=== PATIENT | male | born 1965 | race Caucasian/White ===

== ENCOUNTER → 2017-05-24 | Outpatient (CLI) | payer MEDICAID, SELFPAY | PROVIDERS: Visit Provider Anesthesiology | DX: M54.2 Cervicalgia (principal); M54.5 Low back pain ==

== ENCOUNTER → 2017-06-12 13:51 | Outpatient (CLI) | payer MEDICAID, SELFPAY ==
--- NOTE | 2017-06-12 13:59 | MR_ITS ---
MR lumbar spine wo con, MR 3-d myelogram/MRCP HISTORY: Low back pain worse on the right with bilateral leg numbness ITS.REASON: NECK AND BACK PAIN ORDERING PHYSICIAN: Trace Moscoso MD PATIENT AGE: 52 years COMPARISON: None TECHNIQUE: Standard multiplanar multiecho sequences are performed without contrast. 3-D MIP and myelographic images are also rendered and reviewed FINDINGS: The spinal cord ends at the T12 level. T11-T12, T12-L1, L1-L2, and L2-L3 have an unremarkable appearance. L3-L4: Mild bulging disc with mild facet ligamentum flavum hypertrophy with mild bilateral foraminal narrowing. L4-5: Bulging disc with facet and ligamentum flavum hypertrophy with moderate to severe bilateral foraminal narrowing. L5-S1: Grade 1 spondylolytic spondylolisthesis with pseudocyst disc bulge. There is prominent hypertrophic changes at the facets and pars defect with moderate to severe bilateral foraminal narrowing. No disc herniation or canal stenosis. IMPRESSION: 1. Lumbar spondylosis with degenerative disc disease, bulging disc, and facet and ligamentum arthropathy with bilateral foraminal narrowing most severe at L4-L5. 2. Grade 1 spondylolytic spondylolisthesis L5-S1 with pseudo disc bulge. There is prominent hypertrophic changes at the facets and pars defect with moderate to severe bilateral foraminal narrowing 3. No disc herniation, canal stenosis, or acute fracture
--- NOTE | 2017-06-12 13:59 | MR_ITS ---
MR cervical spine wo con HISTORY: Neck pain with bilateral arm numbness ORDERING PHYSICIAN: Trace Moscoso MD PATIENT AGE: 52 years COMPARISON: None TECHNIQUE: Standard multiplanar multiecho sequences are performed without contrast. 3-D MIP and myelographic images are also rendered and reviewed FINDINGS: The craniocervical junction has an unremarkable appearance. There is normal alignment. The disc spaces are well-preserved. No disc herniation or canal stenosis. No significant foraminal narrowing. Unremarkable appearance of the cervical cord IMPRESSION: Negative MRI of the cervical spine
== END ==
PROVIDERS: Family Provider Internal Medicine Adolescent Medicine; PCP Internal Medicine Adolescent Medicine; Visit Provider Anesthesiology
DX: M54.2 Cervicalgia (principal); M54.5 Low back pain
CPT/HCPCS: 72141; 72148; 76376

== ENCOUNTER → 2017-06-18 10:17 | Outpatient (POV) | payer MEDICAID, SELFPAY ==
--- NOTE | 2017-06-18 11:12 | HMH.PAINSOAP ---
[facility] Pain Management SOAP Note Subjective:: This patient is a 52-year-old white male who we have been seeing for low back pain. We did get a new MRI which shows facet hypertrophy at L4-L5 and L5-S1 with lumbar spondylosis. There is no herniated disc. There is no neuroforaminal narrowing. He has a previous history of cocaine abuse, marijuana abuse and long history of oral narcotic abuse. We will not prescribe him any oral narcotics. He was denied on intrathecal therapy. He has a negative cervical spine MRI. Upon entering the room I did offer the patient facet joint injections of L4-5 and L5-S1 and the patient was very argumentative and said that he has had injections before. Patient is very hostile and kept asking how long it would be before he had the injections and what we will do afterwards. I offered him a plan of facet joint injections followed by rhizotomy and the patient was very resistant and hostile about the procedures. There is nothing more that I can offer this patient. Based on his attitude we will discharge him from the clinic as there is nothing further that I can offer him. He was asking about laser spine surgery I have told him that he can miner pick his MRI disc and contact laser spine surgery on his own. Objective:: Alert and oriented ?3 in no acute distress. Patient has an antalgic gait. Motor strength of the left upper and lower extremities is 5/5. Assessment:: Degenerative disc disease of the lumbar spine with lumbar spondylosis. Patient does have neck pain with cervical radiculopathy symptoms with a normal cervical MRI. Plan:: I offered him a plan of facet joint injections followed by rhizotomy and the patient was very resistant and hostile about the procedures. There is nothing more that I can offer this patient. Based on his attitude we will discharge him from the clinic as there is nothing further that I can offer him. He was asking about laser spine surgery I have told him that he can miner pick his MRI disc and contact laser spine surgery on his own.
--- NOTE | 2017-06-18 11:15 | P.CONS_ITS ---
[facility] Pain Management SOAP Note Subjective:: This patient is a 52-year-old white male who we have been seeing for low back pain. We did get a new MRI which shows facet hypertrophy at L4-L5 and L5-S1 with lumbar spondylosis. There is no herniated disc. There is no neuroforaminal narrowing. He has a previous history of cocaine abuse, marijuana abuse and long history of oral narcotic abuse. We will not prescribe him any oral narcotics. He was denied on intrathecal therapy. He has a negative cervical spine MRI. Upon entering the room I did offer the patient facet joint injections of L4-5 and L5-S1 and the patient was very argumentative and said that he has had injections before. Patient is very hostile and kept asking how long it would be before he had the injections and what we will do afterwards. I offered him a plan of facet joint injections followed by rhizotomy and the patient was very resistant and hostile about the procedures. There is nothing more that I can offer this patient. Based on his attitude we will discharge him from the clinic as there is nothing further that I can offer him. He was asking about laser spine surgery I have told him that he can pick up man his MRI disc and contact laser spine surgery on his own. Objective:: Alert and oriented ?3 in no acute distress. Patient has an antalgic gait. Motor strength of the left upper and lower extremities is 5/5. Assessment:: Degenerative disc disease of the lumbar spine with lumbar spondylosis. Patient does have neck pain with cervical radiculopathy symptoms with a normal cervical MRI. Plan:: I offered him a plan of facet joint injections followed by rhizotomy and the patient was very resistant and hostile about the procedures. There is nothing more that I can offer this patient. Based on his attitude we will discharge him from the clinic as there is nothing further that I can offer him. He was asking about laser spine surgery I have told him that he can pick up man his MRI disc and contact laser spine surgery on his own.
[2017-06-18 11:52] VITALS: BP 115/71; PULSE 89; RESP 20; BMI 26.4
== END ==
PROVIDERS: Family Provider Internal Medicine Adolescent Medicine; PCP Internal Medicine Adolescent Medicine; Visit Provider Anesthesiology
DX: M51.16 Intervertebral disc disorders with radiculopathy, lumbar region (principal); M47.9 Spondylosis, unspecified
CPT/HCPCS: 99212

== ENCOUNTER → 2020-05-03 12:07 | Outpatient (CLI) | payer OTHER, SELFPAY ==
[2020-05-03 15:50] LABS: Coronavirus 19 IgG Antibody Negative (Negative); Coronavirus 19 IgM Antibody Negative (Negative)
== END ==
PROVIDERS: Visit Provider Surgery
DX: Z01.818 Encounter for other preprocedural examination (principal); Z03.818 Encounter for observation for suspected exposure to other biological agents ruled out; Z12.11 Encounter for screening for malignant neoplasm of colon
CPT/HCPCS: 36415; 86328

== ENCOUNTER 2020-05-04 06:55 | Day surgery (SDC) | payer OTHER, SELFPAY ==
[2020-04-30 13:40] VITALS: BMI 23.7
[2020-05-04 07:02] VITALS: BP 175/82; PULSE 63; RESP 18; TEMP 36.4; O2SAT 97
--- NOTE | 2020-05-04 07:15 | HMH.ANESCL ---
[facility] Anesthesia Checklist - Patient Identification Patient Identification: Arm Band, Verbal (Name & ) - Structural Data Admitted From: Home Planned Operative Procedure/s: colon Consent for Planned Operative Procedure(s) Verified: Yes Verified Documents: History and Physical - NPO Status Verified Time NPO: 00:00 - Additional verifications Patient : No Anesthesia Reactions: No Hx Blood Transfusions: No Blood Transfusion Reaction: No Cephalosporin Allergy: No Previous Colonoscopy: No - Cardiovascular Assessment Heart Sounds: S1 & S2 Pulse Strength: Baseline Pulse Rhythm: Regular Peripheral Edema: No - Airway Assessment C-Spine Mobility Assessed: Yes TMJ Mobility Assessed: Yes Dentition: Poor Dentition - Neurological Assessment Level of Consciousness: Awake, Alert, Appropriate Hx Seizures: No Numbness or tingling in extremities: No - Anesthesia Plan Anesthesia Risk discussed: Yes Anesthesia Plan: Verified ASA Class: III Anesthesia Type: MAC [facility] History I have reviewed the patient's past medical history: Yes Medical History: Reports:: MRSA (R FOOT), Seizures (over a year for last seizure) Denies:: Cancer, Diabetes Mellitus Type 1, Diabetes Mellitus Type 2, Internal Pacemaker *Have you ever received a pneumonia vaccine?: No *Have you received a flu vaccine this season?: No Anesthesia experience/problems:: none Other Surgeries: Yes: Other. No: Pacemaker Amputation: No Fractures: No - *Social History Last grade of school completed: 7th or 8th Smoking Status: Current every day smoker Tobacco Type: cigarettes # Packs/Day (cigarettes): 1 Alcohol Intake: never Substance Use Type: marijuana, painkillers *Occupational Status:: disabled *Travel in the last 8 weeks: None Family Hx:: Other
[2020-05-04 07:26] VITALS: O2SAT 99
--- NOTE | 2020-05-04 07:55 | HMH.SCOPE ---
- Procedure: Date: 05/04/20 Patient Date of :: 1965 Procedure Performed:: Total colonoscopy to terminal ileum with polypectomy by biopsy Indications:: 54-year-old male referred by Luiz Kenny for initial screening colonoscopy Performing Provider:: Michael Ralph MD Referring Provider:: Luiz Kenny Sedation:: MAC sedation Procedure:: Patient was taken to endoscopy procedure room. He was positioned in a lateral decubitus position. Adequate intravenous sedation was achieved with anesthesia titration of propofol. Digital examination was performed which revealed diminished sphincter tone. Variable stiffness Olympus colonoscope was inserted via the anus and advanced to cecum. Colonic preparation was good although there was some particulate vegetable matter within the colon. Irrigation and suctioning was performed. Colonoscope was advanced into the terminal ileum which appeared grossly normal. Immediately in the terminal ileum at the ileocecal valve there was a polypoid appearing lesion. This was biopsied and in a piecemeal fashion using cold biopsy forceps. Colonoscope was withdrawn through the colon with careful surveillance. In the sigmoid colon there is a very tiny diminutive subtle polyp removed with cold biopsy forceps. Within the rectum there were several hyperplastic appearing polyps, there was one that was more prominent in the distal rectum which was removed with cold biopsy forceps. This was removed with retroflexion. Colonoscope was withdrawn. Findings:: Prominent nodule at the ileocecal valve, likely benign biopsied in a piecemeal fashion Very tiny subtle diminutive sigmoid polyp removed with cold biopsy forceps Distal rectal polyp, likely hyperplastic, removed with cold biopsy forceps Recommendations:: Pending the pathology likely repeat colonoscopy 5 years. However, if the lesion within the ileocecal valve is adenomatous, which is unlikely, would likely perform early repeat colonoscopy. Complications:: None immediately apparent Estimated blood obtained (mL): 3
[2020-05-04 07:56] VITALS: BP 94/60; PULSE 74; RESP 16; TEMP 36.3; O2SAT 97
[2020-05-04 08:07] VITALS: BP 139/84; PULSE 82; RESP 18; O2SAT 95
[2020-05-04 08:17] VITALS: BP 141/80; PULSE 66; RESP 18; O2SAT 96
[2020-05-04 08:27] VITALS: BP 132/96; PULSE 98; RESP 18; O2SAT 97
== END 2020-05-04 08:27 | disposition home or self-care (01) ==
LOC: OUTP 06:56
PROVIDERS: PCP Internal Medicine Adolescent Medicine; Visit Provider Surgery
PROC: 0DJD8ZZ Inspection of Lower Intestinal Tract, Via Natural or Artificial Opening Endoscopic (ICD-10-PCS; CPT 45380; principal; 2020-05-04 07:30)
DX: Z12.11 Encounter for screening for malignant neoplasm of colon (principal); K63.5 Polyp of colon; K63.9 Disease of intestine, unspecified; K62.1 Rectal polyp; Z86.14 Personal history of Methicillin resistant Staphylococcus aureus infection; Z87.898 Personal history of other specified conditions; Z72.0 Tobacco use; F12.90 Cannabis use, unspecified, uncomplicated; F11.90 Opioid use, unspecified, uncomplicated; Z88.6 Allergy status to analgesic agent
CPT/HCPCS: 45380

== ENCOUNTER → 2023-04-24 08:23 | Outpatient (CLI) | payer OTHER, SELFPAY ==
[2023-04-24 18:48] LABS: Basophils # 0.1 K/mm3 (0-0.2); Basophils % 0.9 % (0.1-2.0); Eosinophils # 0.1 K/mm3 (0.0-0.4); Eosinophils % 1.1 % (0.1-12.0); Hematocrit 47.6 % (42.0-52.0); Hemoglobin 16.3 g/dL (14.1-18.0); Lymphocytes # 1.2 K/mm3 (0.7-4.5); Lymphocytes % 12.2 % (10-50); Mean Corpuscular HGB Conc 34.2 g/dL (31.8-35.4); Mean Corpuscular Hemoglobin 28.9 pg (27.0-31.2); Mean Corpuscular Volume 84.4 fl (80-94); Mean Platelet Volume 8.9 fl (7.4-10.4); Monocytes # 0.8 K/mm3 (0.1-1.0); Monocytes % 7.9 % (1.7-9.3); Neutrophils # 7.6 K/mm3 (1.8-7.8); Neutrophils % 77.9 % (37.0-80.0); Platelet Count 561 K/mm3 (142-424); Red Blood Count 5.65 M/mm3 (4.60-6.20); Red Cell Distribution Width 14.2 % (11.5-17.5); White Blood Count 9.7 K/mm3 (4.8-10.8)
[2023-04-24 19:03] LABS: Alanine Aminotransferase 52 U/L (12-78); Albumin Level 4.4 g/dl (3.5-5.0); Albumin/Globulin Ratio 1.4 (1.1-1.8); Alkaline Phosphatase 106 U/L (38-126); Anion Gap 17.5 mEq/L (5-15); Aspartate Amino Transferase 52 U/L (17-59); Bilirubin,Total 0.8 mg/dl (0.2-1.3); Blood Urea Nitrogen 10 mg/dl (9-20); Calcium 9.2 mg/dl (8.4-10.2); Carbon Dioxide 23 mmol/L (22.0-30.0); Chloride 103 mmol/L (98-107); Chol/HDL Ratio 4.6 (1-3.5); Cholesterol 190 mg/dl (140-200); Estimated Glomerular Filt Rate 99 ml/min (>60); GFR (African American) 120 ML/MIN (>60); Globulin 3.1 g/dL (1.3-3.2); Glucose 102 mg/dl (74-100); HDL Cholesterol 41 mg/dl (40-60); Potassium 4.5 mmoL/L (3.5-5.1); Sodium 139 mmol/L (136-145); Total Protein,Serum 7.5 g/dl (6.3-8.2); Triglycerides 124 mg/dl (30-150); VLDL Cholesterol 25 mg/dL (0-40)
[2023-04-24 19:14] LABS: Direct LDL Cholesterol 119.01 mg/dL (100-129)
[2023-04-24 19:35] LABS: Prostate Specific Ag Screen 0.5 ng/ml (0.0-4.0); Thyroid Stimulating Hormone 0.59 uIU/mL (0.465-4.68)
[2023-04-24 21:06] LABS: 25-OH Vitamin D, Total 16.6 ng/mL (30-100)
[2023-04-26 14:11] LABS: HBsAg Screen Negative (Negative); HCV Ab Non Reactive (Non Reactive); HIV Screen 4th Generation wRfx Non Reactive (Non Reactive); Hep A Ab, IGM Positive (Negative); Hep B Core Ab, IgM Negative (Negative)
== END ==
PROVIDERS: PCP Internal Medicine; Visit Provider Internal Medicine
DX: R53.83 Other fatigue (principal); E55.9 Vitamin D deficiency, unspecified; Z68.23 Body mass index [BMI] 23.0-23.9, adult
CPT/HCPCS: 80053; 80061; 80074; 82306; 84443; 85025; 86703; G0103; G0432

== ENCOUNTER 2023-09-24 16:33 | Outpatient (CLI) | payer OTHER, SELFPAY ==
--- NOTE | 2023-09-24 16:41 | XR_ITS ---
PROCEDURE INFORMATION: Exam: XR Chest Exam date and time: 09/24/2023 4:50 PM Age: 58 years old Clinical indication: Cough and dyspnea; Patient HX: Denies any prior SX TECHNIQUE: Imaging protocol: Radiologic exam of the chest. Views: 2 views. COMPARISON: CT CXR-PICC CHEST PORTABLE-PICC PLACEMENT 12/10/2016 17:48 FINDINGS: Lungs: The lungs are hyperinflated with COPD changes. No acute infiltrates are identified. Pleural spaces: No pneumothorax. No pleural effusion. Heart/Mediastinum: Unremarkable. No cardiomegaly. Bones/joints: Several old, healed posterior right rib fractures. IMPRESSION: Hyperinflated chest suggesting underlying COPD. The chest is otherwise clear
[2023-09-24 18:06] LABS: Coronavirus 19, PCR Not Detected (NotDetected); Influenza A, PCR Not Detected (NotDetected); Influenza B, PCR Not Detected (NotDetected)
== END 2023-09-24 23:59 | disposition home or self-care (01) ==
LOC: LAB.DROPOF 16:34
PROVIDERS: PCP Internal Medicine; Visit Provider Family Medicine
DX: R06.02 Shortness of breath (principal); R06.00 Dyspnea, unspecified; R05.9 Cough, unspecified
CPT/HCPCS: 71046; 87636

== ENCOUNTER 2023-10-29 09:10 | Outpatient (CLI) | payer OTHER, SELFPAY ==
--- NOTE | 2023-10-29 09:11 | XR_ITS ---
FINAL REPORT TECHNIQUE: Bone mineral density was calculated of the lumbar spine and hip. CLINICAL HISTORY: osteoporosis COMPARISON: None FINDINGS: Using L1-4, the bone mineral density of the spine is 1.004 g/cm2, corresponding to T-score of -0.8. Using the left hip, the bone mineral density of the femoral neck is 0.757 g/cm2, corresponding to a T-score of -1.8 Using the right hip, the bone mineral density of the femoral neck is 0.674 g/cm?, corresponding to a T-score of -1.9. NOTE: T-score: Standard deviation compared with peak bone mass of young adult mean. *Following the recommendations of the International Society of Bone densitometry, classification of hip BMD is based on the lower of two T-scores; total hip or femoral neck. IMPRESSION: Diminished bone mineral density of the bilateral hips consistent with osteopenia. Normal bone mineral density of the lumbar spine, although this is likely falsely elevated secondary to degenerative change and sclerosis. Reviewed, Interpreted and Dictated by Michael Gastelum III, MD Transcribed by Constance Hilton Authenticated and [facility]
== END 2023-10-29 23:59 | disposition home or self-care (01) ==
LOC: RAD 09:11
PROVIDERS: PCP Internal Medicine; Visit Provider Internal Medicine
DX: M81.0 Age-related osteoporosis without current pathological fracture (principal)
CPT/HCPCS: 77080

== ENCOUNTER 2023-10-31 08:09 | Outpatient (CLI) | payer OTHER, SELFPAY ==
--- NOTE | 2023-10-31 08:10 | CA_ITS ---
APPROVED REPORT EXAM: Comprehensive 2D, Doppler, and color-flow Echocardiogram Property Consultant: KEN Ibarra, RVS Ht: 6 ft 2 in Wt: 220lbs BSA: 2.26 BP: 128/84 mmHg Indications: SOB, Smoker, COPD,H/o endocarditis Echo Enhancing Agent Comments: Technically limited exam due to lung impedence and Extra low parastenal windows 2D Dimensions IVSd 0.87 cm LVEF (Visual) 64.40 % PWd 0.65 cm LA Volume 73.70 mL LVDd 4.62 cm LA Volume Index 31.80 mL/m2 (M/F) 16-34 LVDs 3.00 cm M-Mode Dimensions RVDd 2.33 cm (0.9-2.6) LA Diam 3.90 cm (1.9-4.0) LVDd 5.27 cm (3.5-5.7) LVDs 3.34 cm (3.5-5.7) IVSd 0.75 cm (0.6-1.1) PWd 0.65 cm (0.6-1.1) EF (Teich) 66.00% EPSs 0.58 cm FS 36.60% EDV (Teich) 133.60 mL TAPSE 2.54 (<1.7) ESV (Teich) 45.40 mL LV Diastology E Decel Time 190 (160-240 msec) E/A Ratio 1.39 MED A' 8.90 cm/s LAT A' 8.50 cm/s Aortic Valve AoV Peak [place]. 154.0 (50-130 cm/s) AO Peak GR. 9.50 mmHg AO Mean GR. 4.70 (<5 mmHg) AO VTI 35.7 (18-25 cm) Mitral Valve MV A Velocity 64.0 (40-130 cm/s) E/A Ratio 1.39 MV PHT 43.0 ms Tricuspid Valve TR P. Velocity 257.00 cm/s RAP Estimate 10.00 mmHg RVSP 36.50 mmHg Left Ventricle The left ventricle is normal size. The left ventricular systolic function is normal. The left ventricular ejection fraction is within the normal range. There is normal left ventricular wall thickness. There is normal LV segmental wall motion. The left ventricular diastolic function is normal. LVEF is 55%. Right Ventricle Right ventricle is mildly dilated. Right ventricle is mildly hypokinetic. Atria The left atrium size is normal. The right atrium size is normal. There is no Doppler evidence of interatrial shunt. Aortic Valve The aortic valve opens well. There is no aortic valvular stenosis. No aortic regurgitation is present. Mitral Valve The mitral valve is normal in structure. No evidence of mitral valve stenosis. Trace mitral valve regurgitation noted. Tricuspid Valve The tricuspid valve leaflets are thin and pliable. Mild tricuspid regurgitation. RVSP is 30-35 mmHg. Pulmonic Valve The pulmonary valve is normal in structure. Trace pulmonic regurgitation. Great Vessels The aortic root is normal in size. The ascending aorta is not well-visualized. IVC is normal in size and collapses >50% with inspiration. Pericardium There is no pericardial effusion. Other Information Study Quality: Technically Difficult Conclusion Technically difficult study due to poor acoustic windows. Normal LV systolic function. Mildly dilated RV with mild reduction in RV function. Mild TR. RVSP 30-35 mmHg. Electronically signed by : Aure Ramos MD 11/03/2023 23:06:58
[2023-10-31 08:40] VITALS: PULSE 76; PULSE 80
[2023-10-31] MEDS: ALBUTEROL 0.083% 2.5 MG/3 ML NEB IH (08:40)
== END 2023-10-31 23:59 | disposition home or self-care (01) ==
LOC: RT 08:10
PROVIDERS: PCP Internal Medicine; Visit Provider Physician Assistant
DX: R06.00 Dyspnea, unspecified (principal); R05.8 Other specified cough; Z86.79 Personal history of other diseases of the circulatory system
CPT/HCPCS: 93306; 94060; 94618; 94640; 94726; 94729

== ENCOUNTER 2024-10-09 15:45 | Outpatient (CLI) | payer OTHER, SELFPAY ==
[2024-10-09 19:05] LABS: Basophils # 0.2 K/mm3 (0-0.2); Basophils % 1.8 % (0.1-2.0); Eosinophils # 0.3 Kmm3 (0.0-0.4); Hematocrit 47.6 % (42.0-52.0); Hemoglobin 15.9 g/dL (14.1-18.0); Immature Granulocytes # 0.04 10^3uL; Immature Granulocytes % 0.5 %; Lymphocytes # 1.9 K/mm3 (0.7-4.5); Lymphocytes % 22.4 % (10-50); Mean Corpuscular HGB Conc 33.4 g/dL (31.8-35.4); Mean Corpuscular Hemoglobin 28.1 pg (27.0-31.2); Mean Corpuscular Volume 84.1 fl (80-94); Mean Platelet Volume 10.4 fl (7.4-10.4); Monocytes # 0.6 K/mm3 (0.1-1.0); Monocytes % 7.1 % (1.7-9.3); Neutrophils # 5.6 K/mm3 (1.8-7.8); Neutrophils % 65.2 % (37.0-80.0); Nucleated Red Blood Cells # 0 10^3/uL; Nucleated Red Blood Cells % 0 %; Platelet Count 319 K/mm3 (142-424); Red Blood Count 5.66 M/mm3 (4.60-6.20); Red Cell Distribution Width 12.9 % (11.5-17.5); Red Cell Distribution Width-SD 39.6 fL; White Blood Count 8.6 K/mm3 (4.8-10.8)
[2024-10-09 19:44] LABS: Hemoglobin A1C 5.7 % (4.0-6.0)
[2024-10-09 19:52] LABS: Alanine Aminotransferase 20 U/L (12-78); Albumin Level 4.7 g/dl (3.5-5.0); Alkaline Phosphatase 73 U/L (38-126); Anion Gap 12.5 mEq/L (5-15); Aspartate Amino Transferase 23 U/L (17-59); Bilirubin,Total 0.6 mg/dl (0.2-1.3); Blood Urea Nitrogen 14 mg/dl (9-20); Calcium 9.5 mg/dl (8.4-10.2); Carbon Dioxide 28 mmol/L (22.0-30.0); Chloride 102 mmol/L (98-107); Cholesterol 158 mg/dl (140-200); Estimated Glomerular Filt Rate 86 ml/min (>60); GFR (African American) 104 ML/MIN (>60); Globulin 2.3 g/dL (1.3-3.2); Glucose 81 mg/dl (74-100); HDL Cholesterol 53 mg/dl (40-60); Potassium 4.5 mmoL/L (3.5-5.1); Sodium 138 mmol/L (136-145); Triglycerides 100 mg/dl (30-150); VLDL Cholesterol 20 mg/dL (0-40)
[2024-10-09 20:25] LABS: Prostate Specific Ag Screen 0.6 ng/ml (0.0-4.0); Thyroid Stimulating Hormone 1.44 uIU/mL (0.465-4.68)
[2024-10-09 22:21] LABS: 25-OH Vitamin D, Total 32.3 ng/mL (30-100)
== END 2024-10-09 23:59 | disposition home or self-care (01) ==
LOC: LAB.DROPOF 10-10 11:14
PROVIDERS: PCP Family Medicine; Visit Provider Family Medicine
DX: Z12.5 Encounter for screening for malignant neoplasm of prostate (principal); M17.11 Unilateral primary osteoarthritis, right knee; G40.909 Epilepsy, unspecified, not intractable, without status epilepticus; Z91.89 Other specified personal risk factors, not elsewhere classified
CPT/HCPCS: 80053; 80061; 82306; 83036; 84443; 85025; G0103

== ENCOUNTER 2024-10-21 12:37 | Outpatient (CLI) | payer OTHER, SELFPAY ==
--- NOTE | 2024-10-21 12:41 | XR_ITS ---
FINAL REPORT CLINICAL HISTORY: Knee pain COMPARISON: None FINDINGS: RIGHT KNEE Three views demonstrate no acute fracture or dislocation. There is moderate narrowing of the medial compartment joint space. Subchondral sclerosis is noted. There is an ossific density in the anterior joint space measuring 1 cm. This looks to be an intra-articular loose body. There are small osteophytes along the undersurface of the patella. There is a small joint effusion. IMPRESSION: Degenerative changes and small joint effusion. Reviewed, Interpreted and Dictated by Shiva Raines MD Transcribed by Marga Dyer Authenticated and [facility]
== END 2024-10-21 23:59 | disposition home or self-care (01) ==
LOC: RAD 12:38
PROVIDERS: PCP Family Medicine; Visit Provider Physician Assistant Surgical
DX: M17.11 Unilateral primary osteoarthritis, right knee (principal); M25.461 Effusion, right knee
CPT/HCPCS: 73562